=== PATIENT | female | born 1955 | race Caucasian/White ===

== ENCOUNTER 2023-11-03 12:20 | Day surgery (SDC) | payer MEDICARE, OTHER ==
[2023-11-03] MEDS ORDERED: Sodium Chloride 0.9% 10 ML Syringe FLUSH PRN (14:31)
[2023-11-03 14:50] LABS: BASOPHILS ABSOLUTE AUTO 0.04 K/uL (0.00-0.10); BASOPHILS PERCENT AUTO 0.4 % (0.1-1.3); EOSINOPHILS PERCENT AUTO 0.1 % (0.0-5.4); HEMATOCRIT 34.2 % (34.3-46.0); HEMOGLOBIN 11.6 g/dL (11.2-15.5); IMMATURE GRAN PERCENT AUTO 0.2 % (0.0-0.7); LYMPHOCYTES ABSOLUTE AUTO 0.68 K/uL (0.8-3.3); LYMPHOCYTES PERCENT AUTO 6.4 % (11.4-47.7); MEAN CORPUSCULAR HEMOGLOBIN 27.9 pg (31.6-35.5); MEAN CORPUSCULAR HGB CONC 33.9 g/dL (31.6-35.5); MEAN CORPUSCULAR VOLUME 82.2 fL (81.4-99.0); MONOCYTES ABSOLUTE AUTO 0.52 K/uL (0.20-0.90); MONOCYTES PERCENT AUTO 4.9 % (3.3-12.6); NEUTROPHILS ABSOLUTE AUTO 9.37 K/uL (1.0-7.6); PLATELET COUNT,PLT 214 K/uL (130-375); RED BLOOD CELL COUNT 4.16 M/uL (3.77-5.24); WHITE BLOOD CELL COUNT,WBC 10.6 K/uL (3.2-11.0)
[2023-11-03] MEDS: Sodium Chloride 0.9% 1,000 ML IV STA (14:50)
[2023-11-03 14:52] LABS: EOSINOPHILS ABSOLUTE AUTO 0.01 K/uL (0.00-0.40); IMMATURE GRAN ABSOLUTE AUTO 0.02 K/uL (0.00-0.23)
[2023-11-03 15:13] LABS: A/G RATIO 1.1 (1.2-2.2); ALANINE AMINOTRANSFERASE,ALT 29 U/L (12-78); ALBUMIN 3.8 g/dL (3.4-5.0); ALKALINE PHOSPHATASE 120 U/L (46-116); ASPARTATE AMNIOTRANSFERASE,AST 20 U/L (15-37); BILIRUBIN TOTAL 0.5 mg/dL (0.2-1.0); BLOOD UREA NITROGEN,BUN 15 mg/dL (7-18); CALCIUM 8.8 mg/dL (8.5-10.1); CARBON DIOXIDE,CO2 26 mmol/L (21-32); CHLORIDE,CL 102 mmol/L (100-108); CREATININE 0.7 mg/dL (0.6-1.0); EST CRCL DRUG DOSING (CG) 61.68 mL/min; ESTIMATED GFR 95 mL/min (>60); GLUCOSE RANDOM 123 mg/dL (74-106); POTASSIUM,K 3.9 mmol/L (3.6-5.2); PROTEIN TOTAL,TP 7.2 g/dL (6.4-8.2); SODIUM,NA 139 mmol/L (140-148); TROPONIN I HIGH SENSITIVITY 12.5 pg/mL (<=60.3)
[2023-11-03 15:14] LABS: ANION GAP 14.9 mmol/L (5.0-14.0)
[2023-11-03] MEDS: Sodium Chloride 0.9% 100 ML IV SCH (15:35)
[2023-11-03] MEDS: Iopamidol 612 MG/ML 100 ML Bottle IV SCH (15:35)
[2023-11-03] MEDS: Sodium Chloride 0.9% 10 ML Syringe FLUSH PRN (15:36)
[2023-11-03 18:17] LABS: APPEARANCE,URINE CLEAR (CLEAR); BILIRUBIN,URINE NEGATIVE (NEGATIVE); COLOR,URINE YELLOW (YELLOW); GLUCOSE,URINE NEGATIVE (NEGATIVE); KETONES,URINE NEGATIVE (NEGATIVE); LEUKOCYTE ESTERASE,URINE NEGATIVE (NEGATIVE); NITRITE,URINE NEGATIVE (NEGATIVE); OCCULT BLOOD,URINE NEGATIVE (NEGATIVE); PH,URINE 6.5 (5.0-8.0); PROTEIN,URINE NEGATIVE (NEGATIVE); UROBILINOGEN,URINE 0.2 EU/dL (0.2-1.0)
[2023-11-03] MEDS ORDERED: fentaNYL 250 MCG/5 ML SDV ONE (18:18)
[2023-11-03] MEDS ORDERED: Ondansetron 4 MG/2 ML SDV ONE (18:19)
[2023-11-03] MEDS ORDERED: Dexamethasone 4 MG/ML SDV ONE (18:19)
[2023-11-03] MEDS ORDERED: Neostigmine Methylsulfate 10 MG/10 ML MDV ONE (18:19)
[2023-11-03] MEDS ORDERED: Rocuronium 50 MG/5 ML Vial ONE (18:19)
[2023-11-03] MEDS ORDERED: Propofol 200 MG/20 ML SDV ONE (18:19)
[2023-11-03] MEDS ORDERED: Glycopyrrolate 0.2 MG/ML 5 ML MDV ONE (18:19)
[2023-11-03 18:20] LABS: AMORPHOUS SEDIMENT,URINE NOT SEEN; BACTERIA,URINE MANY; EPITHELIAL CELLS,URINE RARE; MUCUS,URINE NOT SEEN; RBC,URINE NOT SEEN (0-5); WBC,URINE 0-5 (0-5)
[2023-11-03] MEDS: Bupivacaine 0.5%/EPINEPHrine 1:200,000 50 ML MDV ONE (19:28)
[2023-11-03] MEDS ORDERED: Ketorolac 30 MG/ML SDV ONE (19:48)
[2023-11-03] MEDS ORDERED: Acetaminophen/oxyCODONE 325-5 MG Tab PO PRN (20:51)
[2023-11-03] MEDS ORDERED: Ondansetron 4 MG/2 ML SDV IVPUSH PRN (21:00)
[2023-11-03] MEDS ORDERED: Acetaminophen/HYDROcodone 325-5 MG Tab PO PRN (21:19)
[2023-11-03] MEDS: Bupivacaine 0.25% 10 ML SDV INJECT ONE (21:25)
== END 2023-11-03 22:40 | disposition home or self-care (01) ==
LOC: JP.ED 12:20 → JP.SDS 17:09
PROVIDERS: ATTEND Surgery
DX: K35.33 Acute appendicitis with perforation, localized peritonitis, and gangrene, with abscess (principal); E03.9 Hypothyroidism, unspecified; Z79.890 Hormone replacement therapy; Z79.899 Other long term (current) drug therapy; Z88.0 Allergy status to penicillin
CPT/HCPCS: 00840; 36415; 44970; 74177; 80053; 81001; 83605; 83690; 84484; 85025; 88304; 93005; 93010; 96360; 96361; 99285; J1100; J1596; J1885; J2704; J2710; J3010; J3490; J7030; Q9967; 99204; J2405